=== PATIENT | female | born 1990 | race Two or more races ===

== ENCOUNTER 2025-04-06 15:11 | Emergency (ER) | payer MEDICAID, SELFPAY ==
[2025-04-06 15:12] VITALS: BMI 31.8
[2025-04-06 15:22] VITALS: BP 130/84; PULSE 80; RESP 20; TEMP 37; O2SAT 97
--- NOTE | 2025-04-06 15:33 | PD.EDRME ---
Rapid Medical Screening Exam RME Arrival date/time: 04/06/25 15:11 Chief Complaint: Head Injury Vital signs: Vital Signs Temperature 98.6 F 04/06/25 15:22 Pulse Rate 80 04/06/25 15:22 Respiratory Rate 20 04/06/25 15:22 Blood Pressure 130/84 04/06/25 15:22 Pulse Oximetry (%) 97 04/06/25 15:22 Oxygen Delivery Method Room Air 04/06/25 15:22 Pulse ox room air is 97% Vital signs reviewed by provider: Yes RME Narrative: Patient was laying in the bed when her son jumped up onto the bed hitting his head to her head causing her immediate dizziness, pain and shortness of breath.
--- NOTE | 2025-04-06 15:34 | XR_ITS ---
Examination: CT brain head without contrast. 2-D sagittal coronal reconstructions Date and time of exam:April 06, 2025 1553 hours INDICATIONS: Head butt injury today head pain CTDI: vol (mGy):52.6 DLP: (mGycm):958 Technique: Multiple CT axial sections of the brain have been obtained, 5 mm slice thickness. Contrast has not been administered. 2-D sagittal, coronal reconstructions have been obtained Low dose protocols were performed. One or more of the following dose reduction techniques were used; automated exposure control, adjustment of the mA and/or KV according to patient size, use of iterative reconstruction technique. Findings: No significant ventricular enlargement. Intra-axial or extra-axial hemorrhage density is not seen. No mass effect or midline shift Basal cisterns are not remarkable. Fourth ventricle is midline. Cranial vault intact. Impression: Negative for acute hemorrhage, mass effect or midline shift
--- NOTE | 2025-04-06 17:16 | PD.EDHEAD ---
ED Head Injury RME/HPI General Chief complaint: Head Injury Stated complaint: HIT HEAD ON SON'S HEAD; HEADACHE, DIZZY, NAUSEA Time Seen by Provider: 04/06/25 17:15 Source: patient Arrival date/time: 04/06/25 15:11 Mode of arrival: ambulatory Limitations: no limitations RME / HPI RME / HPI Narrative: Patient was laying in the bed when her son jumped up onto the bed hitting his head to her head causing her immediate dizziness, pain and shortness of breath. MD Complaint: head injury Onset (ago): hour(s) (Hours prior to arrival) Mechanism of Injury: unsure Place: home Loss of Consciousness: no Location of injury: frontal Severity scale (1-10): 5 Quality: sharp and stabbing Radiation: other (Chest) Other Injuries: none Related Data Previous Rx's ?Medication ?Instructions ?Recorded ondansetron 4 mg disintegrating 4 mg PO Q8H PRN nausea and 03/22/24 tablet vomiting #30 tabs Allergies Allergy/AdvReac Type Severity Reaction Status Date / Time Penicillins Allergy Severe Hives Verified 04/06/25 15:14 Review of Systems Constitutional Constitutional: Reports system reviewed and no additional complaints, except as documented Eyes Eyes: Reports system reviewed and no additional complaints, except as documented, Denies dry eyes, Denies exophthalmos and Reports floaters Cardiovascular Cardiovascular: Denies chest pain with activity and Denies claudication ED Exam Narrative Physical exam: There is no apparent trauma to the head. There are no lumps and bumps. There is no apparent step-off. The tympanic membranes are without any hemotympanums. Patient is able to touch her index finger to her nose. Patient is able to tap her heels to her shins. EOMs are intact, eyes are PERRL General Limitations: Present no limitations General appearance: Present alert and in no apparent distress Head Head exam: Present atraumatic, normocephalic and normal inspection Eye Eye exam: Present normal appearance, PERRL and EOMI ENT ENT exam: Present normal exam and normal oropharynx Neck Neck exam: Present normal inspection and full ROM Chest Chest inspection: Present normal inspection Extremities Exam Extremities exam: Present normal inspection and full ROM Back Exam Back exam: Present normal inspection and full ROM Neurological Exam Neurological exam: Present alert, oriented X3 and normal gait Psychiatric Psychiatric exam: Present normal affect and normal mood Skin Skin exam: Present warm, dry, intact and normal color Course Course Course Narrative: Patient will have a CT of the head Quality Measures none Orders Category Date Time Status CT head/brain wo con Stat Exams 04/06/25 15:34 Completed Done Vital Signs Vital signs: Vital Signs Temperature 98.6 F 04/06/25 15:22 Pulse Rate 80 04/06/25 15:22 Respiratory Rate 20 04/06/25 15:22 Blood Pressure 130/84 04/06/25 15:22 Pulse Oximetry (%) 97 04/06/25 15:22 Oxygen Delivery Method Room Air 04/06/25 15:22 Pulse ox room air is 97% Head Injury MDM Narrative MDM Narrative:: CT is negative and patient will go home and no apparent distress. Patient will have 1 [place] prior to discharge. Patient is to follow-up with primary care physician within 1 week of today's visit. She may return here if worse or not better. Patient data External records reviewed:: Other (specify) (NA) Clinical information provided by:: patient Social determinants that could affect healthcare access:: none (NA) Patient has the following chronic illnesses:: NA How is presenting disease/condition affected by chronic disease/condition?: no chronic disease (No chronic disease) Evaluation data The following diagnostics were reviewed and interpreted by me:: radiology exam(s) Lab and/or radiology exams considered but not ordered:: Radiology demonstrates negative for acute processes taking place. Interpretation Summary: NA Medications / Prescriptions Medications or Prescriptions considered but not ordered:: NA Medication administrations:: NA Consultations Consultation(s) initiated? (list below): No Diagnosis Differential diagnosis head injury: concussion without loss of consciousness, epidural hematoma, closed head injury and subarachnoid hematoma Most likely diagnosis given after review of the tests above:: Concussion Admission Indicated Admission indicated?: not indicated Explain why admission is indicated or not indicated:: NA Admission Request Was there a request for admission?: No Admission Attestation Admission request attestation: NA Disposition Plan Disposition Plan: Discharge Discharge Attestation Discharge Attestation: The patient and all family members were given an opportunity to ask questions and understood the discharge instructions. Discharge instructions specifically effects, indications for sooner follow up or return to the emergency department, and the expected course of current diagnosis. Patient condition: Stable Discharge Plan Plan Patient Disposition: HOME (Self Care) Discharge Disposition comment: Discharge no apparent distress Patient condition on transfer: Stable Prescriptions/Referrals Prescriptions/Med Rec: No Action ondansetron 4 mg tablet,disintegrating 4 mg PO Q8H PRN (Reason: nausea and vomiting) Qty: 30 0RF Referrals: No Primary/Family,Physician [Primary Care Provider] - In 1 week Problem List Clinical Impression: Headache Impression comment: Contusion head Patient/Caregiver Discharge Instructions Discharge Activity: activity as tolerated Print Language: Thai Stand Alone Forms: Alejandra Award Info., Patient Portal Info Letter PA/[employer] AD[employer]ER Supervising Physician PA/[employer] Supervising Physician: DEON
== END 2025-04-06 18:22 | disposition home or self-care (01) ==
PROVIDERS: Emergency Provider Emergency Medicine
DX: R51.9 Headache, unspecified (principal)
CPT/HCPCS: 70450; 99283; A9270